=== PATIENT | female | born 1985 | race Caucasian/White ===

== ENCOUNTER 2017-06-03 08:24 | Emergency (ER) | payer MEDICAID ==
[2017-06-03 09:24] LABS: CALCIUM 8.2 mg/dL (8.5-10.1); CARBON DIOXIDE 29.7 mmol/L (21-32); CHLORIDE SERUM 107 mmol/L (98-107); CREATININE SERUM 0.7 mg/dL (0.6-1.0); GFR1 > 60 mL/min; GLUCOSE SERUM 112 mg/dL (74-106); POTASSIUM SERUM 3.7 mmol/L (3.5-5.1); SODIUM SERUM 140 mmol/L (136-145)
[2017-06-03 10:11] VITALS: BP 134/83
== END 2017-06-03 10:11 | disposition home or self-care (01) ==
LOC: ED 08:24
PROVIDERS: Emergency Medicine
DX: G62.9 Polyneuropathy, unspecified (principal)
CPT/HCPCS: 36415; J1885; Q0092

== ENCOUNTER 2017-12-05 16:59 | Emergency (ER) | payer MEDICAID ==
[~2017-12-05] VITALS: Ht 167.6 cm; Wt 112.1 kg
[2017-12-05 17:02] VITALS: Ht 167.6 cm; Wt 112.1 kg
[2017-12-05 18:27] VITALS: BP 131/82
== END 2017-12-05 18:27 | disposition home or self-care (01) ==
LOC: ED 16:59
DX: G56.91 Unspecified mononeuropathy of right upper limb (principal); R03.0 Elevated blood-pressure reading, without diagnosis of hypertension
CPT/HCPCS: A4570; J1885; L3999

== ENCOUNTER 2019-02-14 12:35 | Emergency (ER) | payer OTHER ==
[~2019-02-14] VITALS: Ht 167.6 cm; Wt 76.2 kg
[2019-02-14 12:41] VITALS: BP 128/88; Ht 167.6 cm; Wt 76.2 kg
== END 2019-02-14 13:23 | disposition home or self-care (01) ==
LOC: ED 12:35
DX: J02.9 Acute pharyngitis, unspecified (principal); R05 Cough; Z98.890 Other specified postprocedural states

== ENCOUNTER 2020-02-17 23:09 | Emergency (ER) | payer MEDICAID ==
[2020-02-17 23:31] VITALS: Ht 167.6 cm
[2020-02-18 02:41] VITALS: BP 116/67
== END 2020-02-18 02:59 | disposition home or self-care (01) ==
LOC: ED 23:09
DX: L03.111 Cellulitis of right axilla (principal); J02.9 Acute pharyngitis, unspecified; H92.02 Otalgia, left ear
CPT/HCPCS: J1100

== ENCOUNTER 2020-02-25 15:56 | Emergency (ER) | payer MEDICAID ==
[~2020-02-25] VITALS: Ht 167.6 cm; Wt 121.1 kg
[2020-02-25 16:30] VITALS: Ht 167.6 cm; Wt 121.1 kg
[2020-02-25 17:33] VITALS: BP 157/82
== END 2020-02-25 17:33 | disposition home or self-care (01) ==
LOC: ED 15:56
DX: R31.9 Hematuria, unspecified (principal); R03.0 Elevated blood-pressure reading, without diagnosis of hypertension

== ENCOUNTER 2020-02-29 19:34 | Emergency (ER) | payer MEDICAID ==
[~2020-02-29] VITALS: Ht 167.6 cm; Wt 123.0 kg
[2020-02-29 19:54] VITALS: Ht 167.6 cm; Wt 123.0 kg
[2020-02-29 21:45] VITALS: BP 104/67
== END 2020-02-29 21:42 | disposition home or self-care (01) ==
LOC: ED 19:34
DX: K60.2 Anal fissure, unspecified (principal); K62.5 Hemorrhage of anus and rectum

== ENCOUNTER 2020-05-30 16:36 | Emergency (ER) | payer MEDICAID ==
[~2020-05-30] VITALS: Ht 167.6 cm; Wt 124.3 kg
[2020-05-30 16:43] VITALS: Ht 167.6 cm; Wt 124.3 kg
[2020-05-30 18:21] VITALS: BP 136/72
== END 2020-05-30 18:21 | disposition home or self-care (01) ==
LOC: ED 16:36
DX: S93.401A Sprain of unspecified ligament of right ankle, initial encounter (principal); S83.91XA Sprain of unspecified site of right knee, initial encounter; W01.0XXA Fall on same level from slipping, tripping and stumbling without subsequent striking against object, initial encounter; Y93.89 Activity, other specified; Y92.89 Other specified places as the place of occurrence of the external cause; Y99.8 Other external cause status

== ENCOUNTER 2020-08-10 00:17 | Emergency (ER) | payer MEDICAID, SELFPAY ==
[~2020-08-10] VITALS: Ht 167.6 cm; Wt 126.6 kg
[2020-08-10 00:20] VITALS: Ht 167.6 cm; Wt 126.6 kg
[2020-08-10 04:09] LABS: CALCIUM 8.9 mg/dL (8.5-10.1); CARBON DIOXIDE 30.4 mmol/L (21-32); CHLORIDE SERUM 103 mmol/L (98-107); CREATININE SERUM 0.8 mg/dL (0.6-1.0); GFR1 > 60 mL/min; GLUCOSE SERUM 116 mg/dL (74-106); POTASSIUM SERUM 4.8 mmol/L (3.5-5.1); SODIUM SERUM 139 mmol/L (136-145)
[2020-08-10 04:29] LABS: ALBUMIN 2.8 g/dL (3.4-5.0); ALKALINE PHOSPHATASE 102 U/L (46-116); ALT/SGPT 322 U/L (14-59); AMYLASE 66 U/L (25-115); AST/SGOT 239 U/L (15-37); BILIRUBIN TOTAL 0.89 mg/dL (0.20-1.00); LIPASE 254 IU/L (73-393); TOTAL PROTEIN, SERUM 6.8 g/dL (6.4-8.2)
[2020-08-10 04:52] LABS: BASOPHIL % 0.1 % (0.2-1.3); PLATELET COUNT 258 x10^3mcL (179-408); RED CELL DISTRIBUTION WIDTH 13.5 % (12.3-17.7)
[2020-08-10 05:07] LABS: microscopic required? YES; urine erythrocyte 1+ (NEGATIVE)
[2020-08-10 06:52] VITALS: BP 103/44
== END 2020-08-10 06:52 | disposition home or self-care (01) ==
LOC: ED 00:17
PROVIDERS: Emergency Medicine
DX: N12 Tubulo-interstitial nephritis, not specified as acute or chronic (principal); Z20.828 Contact with and (suspected) exposure to other viral communicable diseases
CPT/HCPCS: J7030; U0003